=== PATIENT | male | born 1985 | race Caucasian/White ===

== ENCOUNTER 2016-02-15 20:10 | Inpatient (IN) | payer MEDICAID, OTHER ==
[~2016-02-15] VITALS: Ht 170.2 cm; Wt 63.2 kg
[2016-02-15 20:17] VITALS: BP 152/87; PULSE 84; RESP 20; O2SAT 98
[2016-02-15 22:07] LABS: BASOPHILS % (AUTO) 0.8 % (0-3); MONOCYTES % (AUTO) 4.5 % (4-12); Mean Corpuscular Hemoglobin 27.3 pg (27.0-35.0); Mean Corpuscular Volume 84.8 fL (81-100); NEUTROPHILS % (AUTO) 73.7 % (40-74); Platelet Count 318 bil/L (150-400)
--- NOTE | 2016-02-15 22:14 | ED.REPORT ---
HPI-General Illness Date of Service Feb 15, 2016 ED Provider: Jimbo Jeffrey MD 30 year old male with a history of chronic renal failure and diabetes presents to the ED accompanied by his parents due to several missed dialysis appointments. Parents state that it has been 9 days since his last dialysis. He currently complains of nausea, vomiting, and dehydration. Typically he receives dialysis Monday//Monday. Family was recently in [place], [place] where he was receiving care. Blood sugar was 30-40 this morning per mother. Nursing Notes Stated Complaint: DIALYSIS Chief Complaint: General Complaint Nursing Notes Reviewed: Yes Allergies: Coded Allergies: TAPE (Verified Allergy, Intermediate, Blister, rash, swelling, 02/15/16) Uncoded Allergies: LENTE INSULN (Allergy, Severe, Blood infection, 02/15/16) Scheduled Amlodipine (Amlodipine) 5 Mg Tablet 5 MG PO BID Aspirin (Aspirin) 81 Mg Tablet 81 MG PO HS Cetirizine HCl (Zyrtec) 10 Mg Capsule 10 MG PO DAILY Clonidine (Clonidine) 0.2 Mg Tablet 0.2 MG PO TID Ferrous Sulfate (Ferrous Sulfate) 325 Mg Tablet 325 MG PO DAILY Furosemide (Furosemide) 80 Mg Tab 80 MG PO DAILY Gabapentin (Gabapentin) 300 Mg Capsule 300 MG PO BID Insulin Glargine (Lantus U100 Insulin Vial) 100 Unit/Ml Vial 24 UNIT SUBQ QPM Insulin Lispro (HumaLOG U100 Insulin Pen) 100 Unit/1 Ml Insuln.pen 1 UNIT SUBQ ACHS Blood Sugar Lispro Correction <151 0 units 151-175 1 unit 176-200 2 units 201-225 3 units 226-250 4 units 251-275 5 units 276-300 6 units 301-325 7 units 326-350 8 units 351-375 9 units 376-400 10 units >400 12 units Check blood sugars before meals and at bedtime. Use correction factor only before meals. Losartan Potassium (Losartan Potassium) 100 Mg Tablet 100 MG PO DAILY Metoprolol Tartrate (Metoprolol Tartrate) 25 Mg Tablet 12.5 MG PO BID Montelukast (Montelukast) 10 Mg Tablet 10 MG PO DAILY Olanzapine ODT (Olanzapine ODT) 5 Mg Tablet 5 MG PO DAILY Ranitidine (Zantac) 150 Mg Tablet 150 MG PO Daily at noon Sevelamer Carbonate (Renvela) 800 Mg Tablet 2-3 TAB PO with meals Sevelamer Carbonate (Renvela) 800 Mg Tablet 1-2 TAB PO with snacks General Time Seen by MD: 22:13 Chief Complaint Other (Dialysis) Hx Obtained From: Patient Arrived By: Walk-in Sudden in Onset?: No Onset Occurred: More than a week ago... (9 days) Associated with: Reports: Nausea, Vomiting Context Related History: Reports Diabetes mellitus Past Medical History Past Medical History Reports: Diabetes mellitus Reports: Renal failure Smoking History Unknown if Ever Smoker Social History Other Social History: Good social support, Lives with parents Review of Systems Full Review of Systems Constitutional: Denies: Chills, Fever Respiratory: Denies: Non-productive cough, Shortness of breath Cardiovascular: Denies: Chest pain GI: Reports: Nausea, Vomiting, Denies: Abdominal pain Male: Denies Dysuria Musculoskeletal: Denies: Back pain Endocrine: Reports: Weight gain Complete sys rev & neg: except as marked. Physical Exam Vital Signs Vital Signs Date Time Temp Pulse Resp B/P Pulse Ox O2 Delivery O2 Flow Rate FiO2 02/15/16 23:00 36.3 64 14 148/64 96 Room Air 02/15/16 20:17 35.9 84 20 152/87 98 Room Air Initial VS: Reviewed, Vital signs normal, Vital signs abnormal Head / Eyes: Atraumatic, Normocephalic Neck: Supple, Non-tender, Full range of motion Abdomen / GI: Soft, Non-tender, No guarding, No rebound, No distention Extremities: Vascular intact, Neuro intact, No swelling, No tenderness Skin: Warm, Dry, No cyanosis Neurologic: Alert, Oriented, Nonfocal General/Constitutional: Awake, Alert, Well developed Appearance / Presentation: Positive: Pale ENT: Airway patent Mouth: Positive: Mucous membranes dry Respiratory / Chest: Breath sounds NL, No respiratory distress, No rales, No rhonchi, No wheezing Cardiovascular: Heart rate NL, Regular rhythm, Heart sounds NL, Cap refill not delayed, Peripheral circulation NL Interpretation & Diagnostics Lab Results Interpretation Result Diagram: 02/16/16 0700 02/16/16 1518 Test 02/15/16 21:55 02/16/16 02:58 02/16/16 04:34 Total Protein 8.4g/dL (6.4-8.4) Lipase 11U/L (13-60) Estimat Glomerular Filtration Rate 5mL/min (>59) Magnesium Level 3.4mg/dL (1.6-2.6) Total Bilirubin 0.3mg/dL (0.0-1.2) Aspartate Amino Transf (AST/SGOT) 17U/L (0-50) Alanine Aminotransferase (ALT/SGPT) 9U/L (0-44) Alkaline Phosphatase 112U/L (25-150) Prealbumin 22mg/dL (20-40) Urine Color Yellow (YELLOW) Urine Appearance Clear (CLEAR,HAZY) Urine pH 6.5 (5.0-8.0) Urine Specific [place] 1.020 (1.003-1.035) Urine Protein 100mg/dL (NEG,TRACE) Urine Glucose (UA) 500mg/dL (NEGATIVE) Urine Ketones 40mg/dL (NEGATIVE) Urine Occult Blood Moderate (NEGATIVE) Urine Nitrite Negative (NEGATIVE) Urine Bilirubin Negative (NEGATIVE) Urine Urobilinogen Normalmg/dL (NORMAL) Urine Leukocyte Esterase Negative (NEGATIVE) Urine RBC 3-10/hpf (0-2) Urine WBC 0-5/hpf (0-5) Urine Epithelial Cells Few/hpf (NONE-MOD) Urine Crystals None seen (NONE SEEN) Urine Bacteria Few/hpf (NONE-FEW) Urine Hyaline Casts None/lpf (NONE) Urine Granular Casts None seen (NONE SEEN) Urine Waxy Casts None seen (NONE SEEN) Urine Red Blood Cell Casts None seen (NONE SEEN) Urine White Blood Cell Casts None seen (NONE SEEN) Urine Mucus None seen (None Seen) Urine Trichomonas None seen (NONE SEEN) Urine Yeast None (NONE SEEN) Urinalysis Comment None Urine Culture Reflexed Not indicated Urine Opiates Screen Negative Urine Methadone Screen Negative Urine Barbiturates Screen Negative Urine Amphetamines Screen Negative Urine Benzodiazepines Screen Negative Urine Cocaine Metabolite Screen Negative Urine Cannabinoids Screen Negative Lab Results Interpretation: Chronic anemia, chronic renal failure, hyperkalemia, hyperphosphatemia, ECG Interpretation ECG Interpretation: Sinus rhythm, rate 85 Tall peaked T waves Time: 23:43 Interpreted by: ED physician ECG Interpretation: Sinus rhythm normal, Rate 91. Improved T waves in V2-V5. Low voltage, extremity leads. Anteroseptal infarct, old. Time: 03:38 Interpreted by: ED physician Normal ECG Interpretation: Normal ECG w/ rate of..., Normal rate, Normal sinus rhythm, No acute ischemic changes X-Ray Chest Interpretation Chest Xray Interpretation: Normal. View: Portable, 1 view Interpretation / Wet Read by: Wet read ED physician Re-Eval/Medical Decision Med Decision/Clinical Course 30-year-old male who is just 9 days of dialysis due to administrative/insurance problems. He started to feel terrible so came in for acute dialysis. He was fine to be hyperkalemic at 7.6 with EKG changes. He also had hyperphosphatemia. He is unable to take his phosphorus finding medications because of his nausea and vomiting. He was treated with insulin, bicarbonate drip, calcium infusion, Lasix, and Kayexalate. His potassium came down to 6.6 and his EKG changes resolved. This case was discussed with Dr. Conroy, nephrology and Dr. Rodriguez, hospitalist. He will be admitted to the hospitalist service for continued critical care management. Source of Hx: Old records Time of Eval: 22:56 Re-Evaluation/Progress Note: Potassium 7.8, previously 5.7. Time of Eval: 23:35 Re-Evaluation/Progress Note: Stil no IV access. Informed of laboratory results. Consultation #1: Referral / Consult Name: Willian Martinez MD Consulted With: Nephrology Call Returned at: 04:03 Note: Agrees to consult. Consultation #2: Referral / Consult Name: Jennifer Rodriguez MD Consulted With: Hospitalist Call Returned at: 04:08 Houseman: Agrees with eval, Agrees with plan, Accepts admit Counseled Regarding: Diagnosis, Lab results, Need for admission Discharge & Departure Primary Impression: Chronic renal failure Chronic kidney disease stage: stage 5 Qualified Code: N18.5 - Chronic kidney disease, stage 5 Additional Impressions: Hemodialysis patient Diabetes mellitus Diabetes mellitus type: type 2 Diabetes mellitus complication status: with kidney complications Diabetes mellitus complication detail: with chronic kidney disease Chronic kidney disease stage: on chronic dialysis Qualified Code: E11.22 - Type 2 diabetes mellitus with diabetic chronic kidney disease Hyperkalemia Disposition: ADMITTED TO HOSPITAL Discharge Condition All VS Reviewed: Yes Condition: Stable Referrals: NOPCP (PCP) Crit Care Except Billable Proc Time Spent: 75-104 minutes Services Performed: Patient management by me, Time spent at bedside, Reviewing test results, Reviewing imaging, Discussing patient care, Documentation in record, Time with fam/surrogate Critical Care Notes: 30-year-old male with missed dialysis and severe acidosis, hyperkalemia, hospital for possible TB requiring multiple IV interventions and intensive one-on-one management. Scribe Attestation Portions of this note were transcribed by Bola Gamboa. I, Dr. Jeffrey, personally performed the history, physical exam and medical decision-making; I reviewed and confirmed the accuracy of the information in the transcribed note. Signed by: Ray Simpson. 02/16/2016, 04:11 Jimbo Jeffrey MD Feb 15, 2016 22:14 Roberto Cavazos Feb 15, 2016 22:22 BOLA GAMBOA Feb 15, 2016 22:32
[2016-02-15 22:23] LABS: Magnesium 3.4 mg/dL (1.6-2.6)
[2016-02-15] MEDS ORDERED: Ondansetron 2 mg/mL 2 mL Inj IVPUSH ONE (22:25)
[2016-02-15] MEDS ORDERED: 0.9% Sodium Chloride 500 ML IV ONE (22:35)
[2016-02-15] MEDS ORDERED: Ondansetron 8 mg ODT Tablet PO ONE (22:40)
[2016-02-15] MEDS ORDERED: Sodium Polystyrene Sulfonate 0.25 Gm/mL 500 mL Suspension PO ONE (22:55)
[2016-02-15] MEDS ORDERED: Insulin Human REGular-Omnicell 100 Unit/mL IV ONE (22:55)
[2016-02-15] MEDS ORDERED: Furosemide 10 mg/mL 2 mL Inj IVPUSH ONE (22:55)
[2016-02-15] MEDS ORDERED: Sodium Bicarb (50 mEq) 8.4% 1 mEq/mL 50 mL Syringe IVPUSH ONE (22:55)
[2016-02-15 23:00] VITALS: BP 148/64; PULSE 64; RESP 14; O2SAT 96
[2016-02-16] VITALS (10 sets, daily range): BP systolic 128–178; BP diastolic 64–92; PULSE 95–113; RESP 10–21; O2SAT 95–99
[2016-02-16] MEDS ORDERED: Calcium GLUCOnate 10% (Gm) 1 Gm/10 mL Inj IVPUSH PRN (01:15)
[2016-02-16] MEDS: HYDROmorphone 1 mg/mL Inj IVPUSH PRN ×7 (01:26→22:24)
[2016-02-16 03:36] LABS: Phosphorus 16.3 mg/dL (2.5-4.9)
[2016-02-16] MEDS ORDERED: Sodium Bicarb 8.4% Inj 150 MEQ in Dextrose 5% 1,000 ML IV SCH ×2 (04:15→04:35)
[2016-02-16] MEDS ORDERED: 0.9% Sodium Chloride 1,000 ML IV SCH (04:34)
[2016-02-16] MEDS ORDERED: Polyethylene Glycol (PEG) 17 Gm Powder PO PRN (04:35)
[2016-02-16] MEDS ORDERED: Alum-Mag Hydrox-Simeth 30 mL Suspension PO PRN (04:35)
[2016-02-16] MEDS ORDERED: Sodium Chloride LOK Flush 10 mL Syringe IVFLUSH PRN ×2 (04:35)
[2016-02-16] MEDS ORDERED: Senna-Docusate 8.6-50 mg Tablet PO PRN (04:35)
[2016-02-16] MEDS ORDERED: ASPI-973 PO (04:59)
[2016-02-16] MEDS ORDERED: SEVE800T7 PO ×2 (04:59→05:00)
[2016-02-16] MEDS ORDERED: GABA-502 PO (04:59)
[2016-02-16] MEDS ORDERED: FERR-83 PO (04:59)
[2016-02-16] MEDS ORDERED: METO25TA6 PO (04:59)
[2016-02-16] MEDS ORDERED: LOSA100T29 PO (04:59)
[2016-02-16] MEDS ORDERED: MONT10TA23 PO (04:59)
[2016-02-16] MEDS ORDERED: CETI10CA PO (04:59)
[2016-02-16] MEDS ORDERED: AMLO5TAB2 PO (04:59)
[2016-02-16] MEDS ORDERED: RANI150T11 PO (04:59)
[2016-02-16] MEDS ORDERED: OLAN5TAB39 PO (04:59)
[2016-02-16] MEDS ORDERED: CLON0.2T PO (04:59)
[2016-02-16] MEDS ORDERED: FRSM80T PO (04:59)
[2016-02-16] MEDS ORDERED: INSU100V7 SUBQ (05:00)
[2016-02-16] MEDS ORDERED: INSU100I18 SUBQ (05:00)
[2016-02-16] MEDS ORDERED: Sodium Bicarb 8.4% Inj 150 MEQ in Dextrose 5% 1,000 ML IV ONE (05:29)
--- NOTE | 2016-02-16 05:49 | PCM.HPMED ---
Subjective Date of Service Feb 16, 2016 Primary Provider: Admitting Physician: Jennifer Rodriguez MD Primary Care Physician: Nopcp Attending Physician: Jennifer Rodriguez MD Admit Status: From the Emergency Department, Full Admit, Critical Care Chief Complaint: No hemodialysis in 9 days History of Present Illness: This is a 30-year-old male who has a history of end-stage renal disease currently on hemodialysis. His renal failure secondary to type I diabetes. He had been with his mother traveling in [facility] and did receive some medical care there. He apparently had been on peritoneal dialysis prior to his visit there and did have an infected peritoneal catheter and had to have it removed. He then was initiated on hemodialysis. He also while there developed pneumonia with an empyema and needed chest tubes for drainage. They then came back to their home here in [place] and was unable to establish hemodialysis with a nephrology provider. Hence they presented to the emergency room today for help. Patient was found to have initial potassium of 7.8 with a bicarbonate of 10. Patient was then given IV regular insulin, IV calcium,iv bicarbonate. After these interventions potassium was then 6.5. Patient also on EKG initially had peaked T waves in V2 to V5. Also had poor R-wave progression across the precordium and initial EKG was sinus rate of 91. Repeat EKG after the interventions revealed normalization of the T waves in the lateral leads. Nephrology Dr. Lake was also counseled that by ER Kirk and will take the patient for dialysis immediately at 7 AM Review of Systems: Patient denies any nausea vomiting alteration in bowel movements. Denies any fevers or chills. Denies cough shortness of breath. All other review of systems are reviewed and are negative except for as in history of present illness. Allergies Coded Allergies: TAPE (Verified Allergy, Intermediate, Blister, rash, swelling, 02/15/16) Uncoded Allergies: LENTE INSULN (Allergy, Severe, Blood infection, 02/15/16) Home Medications Not available at the time of this dictation [facility] Past Medical History Reports: Diabetes mellitus Reports: Renal failure Patient has a history of being on peritoneal dialysis but more recently initiated hemodialysis and has a [place] catheter History of recent pneumonia with empyema requiring chest tube drainage Family History No history of heart disease or diabetes Social History Hx Alcohol Use: No Hx Substance Use: No Smoking Status: Unknown if Ever Smoker Living Arrangement: with Family Exam Vital Signs Vital Sign - Last Date Time Temp Pulse Resp B/P Pulse Ox O2 Delivery O2 Flow Rate FiO2 02/16/16 05:17 36.5 95 18 178/92 96 Room Air Intake and Output 02/15/16 02/15/16 02/16/16 Cumulative From/Thru 15:00 23:00 07:00 02/15/16 20:17 - 02/16/16 04:09 Intake Total 980 ml 980 ml Output Total 120 ml 120 ml Balance 860 ml 860 ml Intake Oral 480 ml 480 ml IV Total 500 ml 500 ml Output Urine Total 120 ml 120 ml # Voids 2 2 Exam Constitutional: Lethargic young male Head: Normocephalic atraumatic Eyes: PERRLA DC EOMI Chest: Clear to auscultation Cor: Regular rate and rhythm S1-S2 Abdomen: Soft nontender bowel sounds present Extremity exam: 1+ pedal edema Psych: Anxious male Skin: No rashes noted Neuro: Alert and oriented 3 and moves all extremities equally Lab and Diagnostics Labs Laboratory Tests 72 Hours Test 02/15/16 21:55 02/16/16 02:58 White Blood Count 8.0th/mm3 (3.8-10.1) Red Blood Count 4.28mil/mm3 (4.40-5.80) Hemoglobin 11.7g/dL (13.8-17.2) Hematocrit 36.3% (41.0-50.0) Mean Corpuscular Volume 84.8fL (81-100) Mean Corpuscular Hemoglobin 27.3pg (27.0-35.0) Mean Corpuscular Hemoglobin Concent 32.2% (32.0-37.0) Red Cell Distribution Width 14.6% (12.3-15.4) Platelet Count 318bil/L (150-400) Neutrophils (%) (Auto) 73.7% (40-74) Lymphocytes (%) (Auto) 18.7% (14-46) Monocytes (%) (Auto) 4.5% (4-12) Eosinophils (%) (Auto) 2.0% (0-5) Basophils (%) (Auto) 0.8% (0-3) Sodium Level 139mEq/L (134-144) 145mEq/L (134-144) Potassium Level 7.8mEq/L (3.5-5.2) 6.5mEq/L (3.5-5.2) Chloride Level 96mEq/L (97-108) 96mEq/L (97-108) Carbon Dioxide Level 10mmol/L (18-29) 12mmol/L (18-29) Blood Urea Nitrogen 99mg/dL (6-20) 103mg/dL (6-20) Creatinine 13.31mg/dL (0.76-1.27) 13.57mg/dL (0.76-1.27) Estimat Glomerular Filtration Rate 5mL/min (>59) 5mL/min (>59) Glucose Level 270mg/dL (60-99) 124mg/dL (60-99) Calcium Level 9.6mg/dL (8.5-10.1) 10.0mg/dL (8.5-10.1) Phosphorus Level 15.0mg/dL (2.5-4.9) 16.3mg/dL (2.5-4.9) Magnesium Level 3.4mg/dL (1.6-2.6) Total Bilirubin 0.3mg/dL (0.0-1.2) Aspartate Amino Transf (AST/SGOT) 13U/L (0-50) Alanine Aminotransferase (ALT/SGPT) 9U/L (0-44) Alkaline Phosphatase 115U/L (25-150) Total Protein 8.4g/dL (6.4-8.4) Albumin 4.0g/dL (3.4-5.0) Lipase 11U/L (13-60) Result Diagram: 02/15/16 2155 02/16/16 0258 12-lead ECG As above Assessment & Plan # Hyperkalemia with EKG changes, acute, present on admission Nephrology notified and will dialyze acutely at [address] on IV bicarbonate drip Repeat potassium after interventions in the ER 6.5. Check stat potassium at 5 AM # End stage renal disease on hemodialysis, chronic, present on admission Nephrology aware and will dialyze this morning # Type I diabetes, chronic, present on admission Will place on subcutaneous regular insulin protocol monitor 4 times a day blood sugars We will need to find out patient's insulin regimen Check hemoglobin A1c # DVT prophylaxis We will place on subcutaneous prophylactic heparin # CODE STATUS Patient is full code Pain Evaluation: Adequate Pain Control VTE Prophylaxis: Sub-Q Heparin (Unfractionated) Resuscitation Status: CPR: Attempt Resuscitation Time spent 60 minutes Jennifer Rodriguez MD Feb 16, 2016 05:49
[2016-02-16 06:13] LABS: APPEARANCE,URINE CLEAR (CLEAR,HAZY); COLOR,URINE YELLOW (YELLOW); OCCULT BLOOD,URINE MODERATE (NEGATIVE); PH,URINE 6.5 (5.0-8.0); UROBILINOGEN,URINE NORMAL (NORMAL)
[2016-02-16 07:04] LABS: Magnesium 3.4 mg/dL (1.6-2.6)
--- NOTE | 2016-02-16 07:04 | ABG ---
DateTimeAnalyzed 07:00:00 -_ pH ____7.128 - pCO2 ___34.9__ -mmHg pO2 ___65.1__ -mmHg HCO3- ___11.0__ -mmol/L ABE __-17.0__ -mmol/L tHb ___10.7__ -g/dL O2Hb ___82.4__ -% COHb ____2.1__ -% MetHb ____1.1__ -% sO2 ___85.1__ -% FIO2 ___21.0__ -% Drawn By LAB - Date/Time Notified____ 07:03:00 -_ Notified By MD - Notified Whom RN - B 748 -mmHg tO2 ___12.5__ -Vol% Rah test N/A -
[2016-02-16 07:23] LABS: BASOPHILS % (AUTO) 0.3 % (0-3); EOSINOPHILS % (AUTO) 0 % (0-5); MONOCYTES % (AUTO) 6.6 % (4-12); Mean Corpuscular Hemoglobin 26.9 pg (27.0-35.0); Mean Corpuscular Volume 84.9 fL (81-100); NEUTROPHILS % (AUTO) 74.7 % (40-74); Platelet Count 300 bil/L (150-400)
[2016-02-16] MEDS ORDERED: Ondansetron 2 mg/mL 2 mL Inj IVPUSH PRN (09:30)
[2016-02-16] MEDS: Ondansetron 2 mg/mL 2 mL Inj IVPUSH PRN ×3 (09:38→18:36)
--- NOTE | 2016-02-16 09:52 | DRSVH ---
PROCEDURE: X-RAY CHEST ONE VIEW, PORTABLE ([id number]) INDICATIONS: missed dialysis TECHNIQUE: One view of the chest was acquired. COMPARISON: None. FINDINGS: Surgical changes and devices: Double-lumen central venous catheter in normal position extending into the atriocaval junction. Lungs and pleura: No pleural effusions or pneumothorax. Lungs are normal considering reduced inspir ation. Slight atelectasis lateral left lung base at the costophrenic sulcus.. Mediastinum: Mediastinal contours appear normal. Heart size is normal. Bones and chest wall: No suspicious bony lesions. Overlying soft tissues appear unremarkable. IMPRESSION: Reduced inspiration, mild alveolar prominence that may reflect a mild degree of volume ov erload but reduced inspiration also could produce this appearance. Dialysis catheter is noted. Dictated by: Aidan Diop M.D. on 02/16/2016 at 9:50 Approved by: Aidan Diop M.D. on 02/16/2016 at 9:50
[2016-02-16] MEDS: Insulin Human REGular 300 Unit/3 mL Inj SUBQ SCH ×3 (10:07→20:16)
[2016-02-16] MEDS: Lanthanum Carbonate 500 mg Chewable Tablet PO SCH ×2 (12:00→17:30)
--- NOTE | 2016-02-16 12:06 | NUR ---
Dialysis note: 3 hrs tx. 2000 ml net UF. Right catheter, dsg changed, no s/s of infection noted. Pls see DTR for VS details. Qb 200-250 with catheter limbs reversed A-V V-A due to poor catheter function, Dr. Churchill made aware. Heparin prime given. O2 @ 2L via NC on. PRN Benadryl 25 mg IV and Zofran 4 mg IV given by primary RN as ordered. Pt restless on and off, trying to get up/sit up, screaming at times, parents at bedside during tx. Post tx, catheter flushed, heparin dwelled and secured. Report given to Ayse DELGADO.
--- NOTE | 2016-02-16 14:02 | NUR ---
NUTRITION ASSESSMENT: ASSESS: Pt is a 30yo M admitted to CCU for renal failure. Pt is on HD chronically. Nephrology is following. Pt had dialysis this AM. Currently in renal diet, no PO recorded yet. PMHX: ESRD on HD, T1DM LABS: Reviewed. Na 145, K 6.5, Bun 103, [employer] 13.57, Glu 124, phos 16.3, mg 3.4, alb 4.0 MEDS: Reviewed. Insulin, zofran GI: 0 BM SKIN: Jarek 12 CURRENT WTS: 63.2kg, BMI 21.8kg/m2 DIET: Renal, no PO recorded yet EST. NEEDS: Dialysis Kcals: 1895-2215kcal/day (30-35kcal/kg) Pro: 75-125g/day (1.2-2.0g/kg) NUTRITION DIAGNOSIS: 1.) Increased nutrient needs related to chronic disease and increased demand for nutrients as evidence by pt on chonic HD NUTRITION INTERVENTION: 1.) Continue renal diet and will monitor for PO intake MONITOR / EVAL: PO intake, dialysis, labs, wt, GI, POC, nutrition status. Will continue to monitor per moderate nutrition risk guidelines
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
--- NOTE | 2016-02-16 14:34 | PCM.PNMED ---
Subjective Date of Service Feb 16, 2016 Subjective The patient is somnolent but not short of breath. No abdominal or chest pain. No fevers or chills. He has a right subclavian catheter for dialysis. Exam Vital Signs Vital Sign - Last Date Time Temp Pulse Resp B/P Pulse Ox O2 Delivery O2 Flow Rate FiO2 02/16/16 12:00 36.0 112 20 152/82 97 Room Air Intake and Output 02/15/16 02/15/16 02/16/16 Cumulative From/Thru 15:00 23:00 07:00 02/15/16 20:17 - 02/16/16 06:42 Intake Total 980 ml 980 ml Output Total 470 ml 470 ml Balance 510 ml 510 ml Intake Oral 480 ml 480 ml IV Total 500 ml 500 ml Output Urine Total 120 ml 120 ml Emesis 350 ml 350 ml # Voids 2 2 Exam Chronically ill, lethargic. No distress. Anicteric sclerae. Neck supple Lungs are clear normal effort. Heart is regular without murmur gallop or rub Right subclavian dialysis catheter Abdomen is soft nondistended Extremities are free of edema Pedal pulses. Skin is otherwise free of rash or lesions other than some scarring from where his PD catheter was previously placed.. IVs and Medications Medications Reviewed: Medications were reviewed in detail Lab and Diagnostics Result Diagram: 02/16/16 0700 02/16/16 0258 12-lead ECG As above Assessment & Plan 1.Hyperkalemia with EKG changes, acute, present on admission The patient has been followed on telemetry and will dialyze in the next hour. He will require dialysis probably at least 2 if not 3 days in a row. 2. End stage renal disease on hemodialysis, chronic, present on admission Nephrology aware and will dialyze this morning, further plans as above. Also to assess his age detailed catheter. It looks like his catheter cares and somewhat suboptimal. We will also run a culture of that catheter. 3. Type I diabetes, chronic, present on admission Will place on subcutaneous regular insulin protocol monitor 4 times a day blood sugars We will need to find out patient's insulin regimen Check hemoglobin A1c, continue to follow his progress. 4. DVT prophylaxis We will place on subcutaneous prophylactic heparin # CODE STATUS Patient is full code Pain Evaluation: Adequate Pain Control VTE Prophylaxis: Sub-Q Heparin (Unfractionated) VTE Mechanical Devices: Intermittant Pneumatic CD Resuscitation Status: CPR: Attempt Resuscitation Time spent 25 minutes Rah Gabriel MD Feb 16, 2016 14:34
--- NOTE | 2016-02-16 15:47 | NUR ---
Social Work Brief Note: EMR reviewed. Patient is a 30 year old male admitted on 02/16/16 for renal failure, HD, and elevated potassium. Patient payer as PW . Patient from [place] and conducted outpt HD in [place]. Patient resides in [place], [place] and on bedrest status at this time. Patient has no listed PCP. SW to follow up with nephrology for outpt HD, pending clinical course. SW to also follow up with therapy to ensure discharge needs pending eval. SW to follow. PLAN: Home with outpt HD, pending nephrology and clinical course. Michael AKINS
[2016-02-16 16:06] LABS: Phosphorus 9.6 mg/dL (2.5-4.9)
--- NOTE | 2016-02-16 17:46 | NUR ---
Anxiety/Moaning/Pain/PO intake/Wounds/BP Patient moaning/yelling most of day, worsening with any interventions. C/O pain all over, no specific area for pain. Skin with multiple scabed and various healing phases and scars. Nauseated, retching a couple of times. Given IV Dilaudid x2 and Zophran x2. Good effect with patient sleeping, but c/o pain 10/10 otherwise. Poor PO intake. refused any food today. Blood sugars checked. Wound care here to do bilateral foot dressings. BP 160-170s. MD made aware and patient regular meds ordered and just arrived. Will see If patient will take. Continuing to monitor closely. Addendum: 02/16/16 at 1822 by CANDACE MATA RN Rachelle received and given as ordered. Monitoring.
[2016-02-16] MEDS: OLANZapine Zydis ODT 5 mg Tablet PO SCH (18:00)
--- NOTE | 2016-02-16 18:11 | NUR ---
Wound Care Wound evaluation orders received, pt seen at bedside. 30 yo male Type 1 DM, ESRD presented to ED in need of Hemodialysis after recent move into the area. Inspection of his feet reveals dry neuropathic ulcers at the planter and lateral surface of 5th met heads both left and right. Left 2 cm x 1.5 cm Right 2.5 cm x 2 cm. Pulses palpable at DP and NEEDLE LOOM OPERATOR HELPER bilaterally. Feet are worm, legs have hair growth. These were cleaned with a #10 blade then redressed with hydrogel, foam dressings, unna wrap and coban loosely. Wounds appear chronic and uninfected. Recommend podiatric consult.
[2016-02-17] MEDS: Insulin Human REGular 300 Unit/3 mL Inj SUBQ SCH ×3 (02:30→14:28)
--- NOTE | 2016-02-17 02:45 | NUR ---
Anxiety/Pain/Affect/GI Pt cried out stating he was in pain, was not able to verbalize where or type of pain. Pt given PRN analgesic and assisted back to bed. Pt incontinent of stool, engineering technical writer changed pt's brief and knotting machine operator pad.
[2016-02-17 03:22] VITALS: BP 142/78; PULSE 96; RESP 13; O2SAT 95
[2016-02-17] MEDS: Ondansetron 2 mg/mL 2 mL Inj IVPUSH PRN ×2 (04:07→07:48)
[2016-02-17] MEDS: HYDROmorphone 1 mg/mL Inj IVPUSH PRN ×2 (04:08→07:48)
[2016-02-17 04:53] LABS: BASOPHILS % (AUTO) 0.2 % (0-3); EOSINOPHILS % (AUTO) 0.1 % (0-5); MONOCYTES % (AUTO) 9.5 % (4-12); Mean Corpuscular Hemoglobin 27.4 pg (27.0-35.0); Mean Corpuscular Volume 83.6 fL (81-100); NEUTROPHILS % (AUTO) 66.7 % (40-74); Platelet Count 393 bil/L (150-400)
[2016-02-17 07:41] VITALS: BP 128/64; PULSE 95; RESP 14; O2SAT 97
[2016-02-17 08:00] VITALS: PULSE 100
[2016-02-17] MEDS: Lanthanum Carbonate 500 mg Chewable Tablet PO SCH ×2 (09:21→12:29)
[2016-02-17] MEDS: OLANZapine Zydis ODT 5 mg Tablet PO SCH (09:23)
--- NOTE | 2016-02-17 11:22 | NUR ---
Withheld medications Per fisheries biologist, pt's morning BP medications and furosemide were held prior to dialysis.
[2016-02-17 11:49] VITALS: BP 142/76; PULSE 95; RESP 11; O2SAT 98
--- NOTE | 2016-02-17 12:39 | NUR ---
Neuromuscular/Sedation When administering pt medications, pt's hand became tremulous and he dropped the pill cup. Pt appeared uncoordinated and was unable to picking machine operator helper pills and place in mouth. Pt was also unable to bring cup to mouth to help swallow medications. Pt was questioned as to whether this was a new condition, pt stated that it was not. Pt is very somnolent. Awakens to touch but is very drowsy and immediately falls back to sleep. Addendum: 02/17/16 at 1334 by DANK GUERRERO RN TIRE FABRICATOR called this RN to room as pt would not arouse for lunch. Pt will wake to repeated verbal stimuli, but falls back to sleep. Blood Glucose was checked at 294, Pt is slightly diaphoretic, Temp 37.5. After repeated attempts pt aroused and sat up in bed to eat lunch.
--- NOTE | 2016-02-17 13:16 | PCM.PNMED ---
Subjective Date of Service Feb 17, 2016 Subjective HD x1 yesterday 3 hr. He is more calm today. No CP/SOB (+) poor appetite. Exam Vital Signs Vital Sign - Last Date Time Temp Pulse Resp B/P Pulse Ox O2 Delivery O2 Flow Rate FiO2 02/17/16 11:49 36.9 95 11 142/76 98 Room Air Intake and Output 02/16/16 02/16/16 02/17/16 Cumulative From/Thru 15:00 23:00 07:00 02/15/16 20:17 - 02/17/16 06:25 Intake Total 330 ml 1310 ml Output Total 2000 ml 1100 ml 3570 ml Balance -2000 ml -770 ml -2260 ml Intake Oral 300 ml 780 ml IV Total 30 ml 530 ml Output Urine Total 400 ml 520 ml Emesis 700 ml 1050 ml Ultrafiltrate 2000 ml 2000 ml # Voids 2 # Bowel Movements 1 1 2 Exam General appearance: Awake, alert, oriented x3. calm. HEENT: Mild pallor. No jaundice. No JVD. No lymphadenopathy. No thyroid gland enlargement. Atraumatic, moist mucous membranes. Heart: Regular rhythm. Normal S1, S2. No murmurs, rubs or gallops. Lungs: Coarse crackles at the bases. No wheezing. No rhonchi. Abdomen: Soft, active bowel sounds. Nontender, nondistended. No hepatosplenomegaly. Extremities: 1+ edema on the lower extremities. No clubbing of fingers. Lab and Diagnostics Result Diagram: 02/17/1641402/17/16414 12-lead ECG As above Assessment & Plan ASSESSMENT: 1. End-stage renal disease with uremia. 2. Severe hyperkalemia, improving. 3. Severe metabolic acidosis secondary to uremia. 4. Hyperphosphatemia, improving. 5. Type 1 diabetes complicated by diabetic nephropathy and diabetic retinopathy. PLAN: HD again today for 3 1/2 hr, UF 2-3 L as tolerated. SW to arrange for OP HD. continue fosrenol for hyperPO4. VTE Prophylaxis: Sub-Q Heparin (Unfractionated) VTE Mechanical Devices: Intermittant Pneumatic CD Resuscitation Status: CPR: Attempt Resuscitation Willian Martinez MD Feb 17, 2016 13:16
--- NOTE | 2016-02-17 14:37 | PCM.PNMED ---
Subjective Date of Service Feb 17, 2016 Subjective He denies fevers, chest pain, or abdominal pain. No nausea vomiting or diarrhea. He dialyzed yesterday for the first time in about a week. Exam Vital Signs Vital Sign - Last Date Time Temp Pulse Resp B/P Pulse Ox O2 Delivery O2 Flow Rate FiO2 02/17/16 11:49 36.9 95 11 142/76 98 Room Air Intake and Output 02/16/16 02/16/16 02/17/16 Cumulative From/Thru 14:59 22:59 06:59 02/15/16 20:17 - 02/17/16 06:25 Intake Total 330 ml 1310 ml Output Total 2000 ml 1100 ml 3570 ml Balance -2000 ml -770 ml -2260 ml Intake Oral 300 ml 780 ml IV Total 30 ml 530 ml Output Urine Total 400 ml 520 ml Emesis 700 ml 1050 ml Ultrafiltrate 2000 ml 2000 ml # Voids 2 # Bowel Movements 1 1 2 Exam Chronically on appearance but no distress. Fluent speech. Peripheral lungs are clear, of her peripheral heart is regular without murmur Visit right subclavian dialysis catheter. Had an soft nondistended he has a scar from his old PD cath. No tenderness. Extremities free of edema. Both feet are wrapped from wound care. IVs and Medications Medications Reviewed: Medications were reviewed in detail Lab and Diagnostics Result Diagram: 02/17/165 02/17/16414 12-lead ECG As above Assessment & Plan 1.Hyperkalemia with EKG changes, acute, present on admission. Resolved with dialysis. The patient will have a second dialysis treatment today and the third tomorrow morning. He will then be ready for discharge home. 2. End stage renal disease on hemodialysis, chronic, present on admission Nephrology is arrange for initiation into our dialysis center. The social media strategist will try to finalize these details today so we can discharge tomorrow, . 3. Type I diabetes, chronic, present on admission, this is comp K by retinopathy and nephropathy. Will place on subcutaneous regular insulin protocol monitor 4 times a day blood sugars We will need to find out patient's insulin regimen Check hemoglobin A1c, continue to follow his progress. 4. DVT prophylaxis We will place on subcutaneous prophylactic heparin 5. Chronic foot wounds, bilateral. Wound cares consult and following. Likely have an outpatient wound care appointment made as well. Wound care is requested a podiatry consult, we will work on that now. 6. Secondary hyperphosphatemia. This is currently being treated with Fosrenol. Spoke with measurer today. They will plan on dialyzing him a third time tomorrow morning and finalizing social work arrangements for initiation of outpatient dialysis between now and then so that he can discharge. Pain Evaluation: Adequate Pain Control VTE Prophylaxis: Sub-Q Heparin (Unfractionated) VTE Mechanical Devices: Intermittant Pneumatic CD Resuscitation Status: CPR: Attempt Resuscitation Time spent 20 minutes Rah Gabriel MD Feb 17, 2016 14:37
[2016-02-17] MEDS ORDERED: Insulin GLARgine 100 Unit/mL Syringe SUBQ ONE (15:30)
[2016-02-17 15:32] VITALS: BP 153/96; PULSE 96
--- NOTE | 2016-02-17 16:07 | NUR ---
Transfer MO Pt transferred to [facility] for Dialysis. Report given to Gael DELGADO. Telemetry notified.
--- NOTE | 2016-02-17 18:13 | NUR ---
Wound Care Dressings changed at philippe 5th met heads, pt somnolent during treatment. Cleaned with saline and gauze, applied Calmoseptine to periwound skin then ns moist gauze over ulcers, wrapped with Kerlix and coban. Wounds stable but need inspection by podiatry to decide if aggressive debridement is warranted. Recommend podiatry consult and foot x-rays for baseline.
--- NOTE | 2016-02-17 18:38 | NUR ---
Dialysis Pt is somnolent throughout HD run, He states he does not feel well. Blood glucose 88, BP 139/96, and 3L was taken off. Pt will be coming off at 1900 and be transferred back to [facility] at 1715, tried to order patient food, however he did not know what he wanted and was not responding.
--- NOTE | 2016-02-17 19:15 | NUR ---
Dialysis note: 3 1/2 hrs tx. 3000 ml net UF. Right catheter, dsg dry and intact. Pls see DTR for VS details. Qb 300 with catheter limbs reversed A-V V-A due to poor catheter function. Heparin prime given. O2 @ 2L via NC on. Tolerated tx, slept throughout. Catheter flushed, heparin dwelled and secured. Report given to Caryl Reyna RN. Transferred back to patient's room in stable condition.
--- NOTE | 2016-02-17 19:59 | NUR ---
AMA Pt arrived to floor from Dialysis around 1930, Pt AxOx3 with family in room. Pt requesting AMA paperwork to go home. Discussed risks of leaving AMA and pt verbalized understanding. Pt signed paperwork and MD notified. Pt left with family and all belongings.
[2016-02-17] MEDS ORDERED: Insulin GLARgine 100 Unit/mL Syringe SUBQ SCH (21:00)
[2016-02-18 05:10] LABS: Vitamin D, 25-Hydroxy 10.1 ng/mL (30.0-100.0)
--- NOTE | 2016-02-18 17:57 | PCM.DC.MED ---
Discharge Summary Date of Service Feb 18, 2016 Dates of Hospitalization Date of Hospital Admission Feb 16, 2016 at 04:47 Date of Discharge: Feb 17, 2016 Providers: Admitting Physician: Jennifer Rodriguez MD Primary Care Physician: Taran Attending Physician: Jennifer Rodriguez MD Diagnosis at Time of Discharge Diagnosis at Time of Discharge End-stage renal disease; type I diabetes mellitus Consultations Nephrology, ASSESSMENT: 1. End-stage renal disease with uremia. 2. Severe hyperkalemia. 3. Severe metabolic acidosis secondary to uremia. 4. Hyperphosphatemia. 5. Type 1 diabetes complicated by diabetic nephropathy and diabetic retinopathy. PLAN: Today we will resume the dialysis. Start at 3 hours using 1 K bath for the first hour and 2 K bath for two hours. We will run blood flow rate at 250 mL/minute and dialysate flow rate 500 mL/minute with ultrafiltration of 2 L. We will again arrange for the dialysis tomorrow. Will consult social security benefits interviewer to arrange for outpatient hemodialysis. I will repeat his hepatitis panel. Will start patient on the Fosrenol for phosphate binder. Will check his vitamin D 25, PTH level. We will discontinue all IV fluids. Willian Martinez MD 02/16/16 1209 . Procedures XRay, CTs & MRIs PROCEDURE: X-RAY CHEST ONE VIEW, PORTABLE ([id number]) IMPRESSION: Reduced inspiration, mild alveolar prominence that may reflect a mild degree of volume overload but reduced inspiration also could produce this appearance. Dialysis catheter is noted. Dictated by: Aidan Diop M.D. on 02/16/2016 at 9:50 . Brief History History of Present Illness (per admission note): This is a 30-year-old male who has a history of end-stage renal disease currently on hemodialysis. His renal failure secondary to type I diabetes. He had been with his mother traveling in [facility] and did receive some medical care there. He apparently had been on peritoneal dialysis prior to his visit there and did have an infected peritoneal catheter and had to have it removed. He then was initiated on hemodialysis. He also while there developed pneumonia with an empyema and needed chest tubes for drainage. They then came back to their home here in [place] and was unable to establish hemodialysis with a nephrology provider. Hence they presented to the emergency room today for help. Patient was found to have initial potassium of 7.8 with a bicarbonate of 10. Patient was then given IV regular insulin, IV calcium,iv bicarbonate. After these interventions potassium was then 6.5. Patient also on EKG initially had peaked T waves in V2 to V5. Also had poor R-wave progression across the precordium and initial EKG was sinus rate of 91. Repeat EKG after the interventions revealed normalization of the T waves in the lateral leads. Nephrology Dr. Lake was also counseled that by SARAH Bradley and will take the patient for dialysis immediately at 7 AM Hospital Course 1.Hyperkalemia with EKG changes, acute, present on admission. Resolved with dialysis. The patient will have a second dialysis treatment on 02/16 and the third tomorrow morning on 02/17. He will then be ready for discharge home. - Patient elected to leave AMA prior to his morning dialysis 2. End stage renal disease on hemodialysis, chronic, present on admission Nephrology is arrange for initiation into our dialysis center. The social security benefits interviewer will try to finalize these details today so we can discharge tomorrow, . 3. Type I diabetes, chronic, present on admission, this is comp K by retinopathy and nephropathy. Will place on subcutaneous regular insulin protocol monitor 4 times a day blood sugars We will need to find out patient's insulin regimen Check hemoglobin A1c, continue to follow his progress. 4. DVT prophylaxis We will place on subcutaneous prophylactic heparin 5. Chronic foot wounds, bilateral. Wound cares consult and following. Likely have an outpatient wound care appointment made as well. Wound care is requested a podiatry consult, we will work on that now. 6. Secondary hyperphosphatemia. This is currently being treated with Fosrenol. Spoke with gang mower operator today. They will plan on dialyzing him a third time tomorrow morning and finalizing social work arrangements for initiation of outpatient dialysis between now and then so that he can discharge. Exam Vital Signs (Last) Date Time Temp Pulse Resp B/P Pulse Ox O2 Delivery O2 Flow Rate FiO2 02/17/16 15:32 96 02/17/16 11:49 36.9 11 142/76 98 Room Air Exam Patient left during nighttime hours. See physical exam on progress note from . Test 02/15/16 21:55 02/16/16 02:58 02/16/16 04:34 02/16/16 07:00 Lipase 11U/L (13-60) Magnesium Level 3.4mg/dL (1.6-2.6) Prealbumin 22mg/dL (20-40) Urine Color Yellow (YELLOW) Urine Appearance Clear (CLEAR,HAZY) Urine pH 6.5 (5.0-8.0) Urine Specific Towner 1.020 (1.003-1.035) Urine Protein 100mg/dL (NEG,TRACE) Urine Glucose (UA) 500mg/dL (NEGATIVE) Urine Ketones 40mg/dL (NEGATIVE) Urine Occult Blood Moderate (NEGATIVE) Urine Nitrite Negative (NEGATIVE) Urine Bilirubin Negative (NEGATIVE) Urine Urobilinogen Normalmg/dL (NORMAL) Urine Leukocyte Esterase Negative (NEGATIVE) Urine RBC 3-10/hpf (0-2) Urine WBC 0-5/hpf (0-5) Urine Epithelial Cells Few/hpf (NONE-MOD) Urine Crystals None seen (NONE SEEN) Urine Bacteria Few/hpf (NONE-FEW) Urine Hyaline Casts None/lpf (NONE) Urine Granular Casts None seen (NONE SEEN) Urine Waxy Casts None seen (NONE SEEN) Urine Red Blood Cell Casts None seen (NONE SEEN) Urine White Blood Cell Casts None seen (NONE SEEN) Urine Mucus None seen (None Seen) Urine Trichomonas None seen (NONE SEEN) Urine Yeast None (NONE SEEN) Urinalysis Comment None Urine Culture Reflexed Not indicated Urine Opiates Screen Negative Urine Methadone Screen Negative Urine Barbiturates Screen Negative Urine Amphetamines Screen Negative Urine Benzodiazepines Screen Negative Urine Cocaine Metabolite Screen Negative Urine Cannabinoids Screen Negative Hemoglobin A1c 7.0% (4.8-5.6) Lactic Acid Level 1.5mmol/L (0.4-2.0) Test 02/16/16 15:18 02/17/16 04:15 Phosphorus Level 9.6mg/dL (2.5-4.9) White Blood Count 14.7th/mm3 (3.8-10.1) Red Blood Count 4.27mil/mm3 (4.40-5.80) Hemoglobin 11.7g/dL (13.8-17.2) Hematocrit 35.7% (41.0-50.0) Mean Corpuscular Volume 83.6fL (81-100) Mean Corpuscular Hemoglobin 27.4pg (27.0-35.0) Mean Corpuscular Hemoglobin Concent 32.8% (32.0-37.0) Red Cell Distribution Width 14.9% (12.3-15.4) Platelet Count 393bil/L (150-400) Neutrophils (%) (Auto) 66.7% (40-74) Lymphocytes (%) (Auto) 23.2% (14-46) Monocytes (%) (Auto) 9.5% (4-12) Eosinophils (%) (Auto) 0.1% (0-5) Basophils (%) (Auto) 0.2% (0-3) Sodium Level 143mEq/L (134-144) Potassium Level 5.5mEq/L (3.5-5.2) Chloride Level 91mEq/L (97-108) Carbon Dioxide Level 17mmol/L (18-29) Blood Urea Nitrogen 70mg/dL (6-20) Creatinine 9.00mg/dL (0.76-1.27) Estimat Glomerular Filtration Rate 7mL/min (>59) Glucose Level 198mg/dL (60-99) Calcium Level 9.0mg/dL (8.5-10.1) Total Bilirubin 0.3mg/dL (0.0-1.2) Aspartate Amino Transf (AST/SGOT) 17U/L (0-50) Alanine Aminotransferase (ALT/SGPT) 13U/L (0-44) Alkaline Phosphatase 112U/L (25-150) Total Protein 8.0g/dL (6.4-8.4) Albumin 4.0g/dL (3.4-5.0) Vitamin D 25-Hydroxy 10.1ng/mL (30.0-100.0) Parathyroid Hormone (Intact) 241pg/mL (15-65) Hepatitis B Surface Antigen Negative (Negative) Hepatitis B Surface Antibody Reactive (.) Hepatitis B Core Total Antibody Negative (Negative) HIV (1&2) Ag and Ab, 4th Generation Non reactive (Non Reactive) Discharge Medications Discharge Medications Amlodipine (Amlodipine) 5 Mg Tablet 5 MG PO BID (Reported) Aspirin (Aspirin) 81 Mg Tablet 81 MG PO HS (Reported) Cetirizine HCl (Zyrtec) 10 Mg Capsule 10 MG PO DAILY (Reported) Clonidine (Clonidine) 0.2 Mg Tablet 0.2 MG PO TID (Reported) Ferrous Sulfate (Ferrous Sulfate) 325 Mg Tablet 325 MG PO DAILY (Reported) Furosemide (Furosemide) 80 Mg Tab 80 MG PO DAILY (Reported) Gabapentin (Gabapentin) 300 Mg Capsule 300 MG PO BID (Reported) Insulin Glargine (Lantus U100 Insulin Vial) 100 Unit/Ml Vial 24 UNIT SUBQ QPM ( Reported) Insulin Lispro (HumaLOG U100 Insulin Pen) 100 Unit/1 Ml Insuln.pen 1 UNIT SUBQ ACHS (Reported) Blood Sugar Lispro Correction <151 0 units 151-175 1 unit 176-200 2 units 201-225 3 units 226-250 4 units 251-275 5 units 276-300 6 units 301-325 7 units 326-350 8 units 351-375 9 units 376-400 10 units >400 12 units Check blood sugars before meals and at bedtime. Use correction factor only before meals. Losartan Potassium (Losartan Potassium) 100 Mg Tablet 100 MG PO DAILY (Reported ) Metoprolol Tartrate (Metoprolol Tartrate) 25 Mg Tablet 12.5 MG PO BID (Reported ) Montelukast (Montelukast) 10 Mg Tablet 10 MG PO DAILY (Reported) Olanzapine ODT (Olanzapine ODT) 5 Mg Tablet 5 MG PO DAILY (Reported) Ranitidine (Zantac) 150 Mg Tablet 150 MG PO Daily at noon (Reported) Sevelamer Carbonate (Renvela) 800 Mg Tablet 2-3 TAB PO with meals (Reported) Sevelamer Carbonate (Renvela) 800 Mg Tablet 1-2 TAB PO with snacks (Reported) Time spent 10 minutes Alejandro Bui MD Feb 18, 2016 17:57
== END 2016-02-17 19:42 | disposition left against medical advice (07) | DRG 460 ==
LOC: SED 20:10 → CCU 02-16 04:47 → PCC 02-16 15:46
PROVIDERS: ADMIT Specialist; ATTEND Specialist
PROC: 4A033B1 Measurement of Arterial Pressure, Peripheral, Percutaneous Approach (ICD-10-PCS; principal; 2016-02-16)
PROC: 5A1D00Z (ICD-10-PCS; 2016-02-16)
PROC: 5A1D00Z (ICD-10-PCS; 2016-02-17)
DX: N18.6 End stage renal disease (principal); E87.2 Acidosis; E10.22 Type 1 diabetes mellitus with diabetic chronic kidney disease; E87.5 Hyperkalemia; E10.319 Type 1 diabetes mellitus with unspecified diabetic retinopathy without macular edema; E83.39 Other disorders of phosphorus metabolism; Z99.2 Dependence on renal dialysis